=== PATIENT | male | born 1985 | race Two or more races ===

== ENCOUNTER 2024-02-05 08:33 | Inpatient (IN) ==
--- NOTE | 2024-02-05 09:04 | Emergency Department Note ---
History of Present Illness General Chief complaint: Groin Pain Stated complaint: GROIN PAIN Time Seen by Provider: 02/05/24 08:42 History of Present Illness Maximum Pain Intensity: 4 This is a 38-year-old male that presents to the emergency department via private vehicle with complaints of "left-sided groin pain". The patient notes that for the past several years now he has had intermittent episodes of left-sided groin pain that radiates to the penis and rectal/prostate region. He states that normally it is of short duration. He notes that last week there was a brief episode that resolved and then about 3 days ago developed discomfort that has been rather constant and is unusual for him. He denies any trauma or injury. He points to the left lower quadrant/left-sided suprapubic region as location of discomfort at times and at random and will radiate pain to the penis as well as rectal/prostate region. The patient denies any testicular pain. No aggravating factor. Deviating factors he notes is with urination, bowel movement or ejaculation. He denies any blood in the urine or stool. He denies any trouble with urination or bowel movements. He denies any fevers, chills, nausea or vomiting. He notes he is otherwise healthy. No known drug allergies. He notes he is a monogamous relationship and denies concern or chance of STI. Home Medications Medication Instructions Recorded Confirmed Type ibuprofen 200 mg tablet 200 mg PO Q6H PRN PAIN/FEVER 02/05/24 02/05/24 History levocetirizine 5 mg tablet (Xyzal) 5 mg PO DAILY 02/05/24 02/05/24 History Allergies Allergy/AdvReac Type Severity Reaction Status Date / Time No Known Allergies Allergy Unverified 02/05/24 11:40 Past Med/Surg History Problem List (Updated 02/05/24 @ 12:32 by Jared Grover PA-C) Acute diverticulitis (Acute) Social History Smoking Status: Never smoker Preferred Language: Malay Feels Safe at Home: Yes Review of Systems A total of 10 systems reviewed and were otherwise negative Physical Exam Vital Signs Vital Signs - 24 hr 02/05/24 08:36 02/05/24 11:19 Temperature 37.0 C Temperature Source Temporal Artery Scan Pulse Rate 96 H Pulse Rate [Radial] 87 Respiratory Rate 18 16 Respiratory Effort / Characteristics Non-Labored Spontaneous Respiratory Depth Normal Respiratory Pattern Regular Blood Pressure 157/95 H Blood Pressure [Left Arm] 142/82 H Blood Pressure Mean 115 Blood Pressure Mean [Left Arm] 102 Pulse Oximetry 96 99 Oxygen Delivery Method Room Air Sepsis Recent Fever Within 48 Hours No Sepsis New/Unexplained Change in Mental Status No Sepsis Action Taken by Nursing No Action Required VITAL SIGNS - Vital signs and nursing notes were reviewed. Stable and afebrile. GENERAL -38-year-old male appearing his stated age who is in no acute distress. Communicates well with provider and answers questions appropriately. SKIN - Without rashes. No meningeal or petechial rash. HEAD - NC/AT. EYES - PERRL with EOMI bilaterally. Sclera anicteric. NECK - No nuchal rigidity. LUNGS - CTA CARDIAC - RRR ABDOMEN - Abdominal contour normal without pulsations or visible masses. BS normoactive all four quadrants. No tenderness, palpable masses, hepatosplenomegaly, or ascites noted. GURN machine maintenance servicer present. Consent was obtained. Scrotal region is unremarkable to inspection. Penis unremarkable to inspection. No lesions or rashes. Scrotal region nontender. No evidence of testicular torsion. No high riding testicle. Normal cremasteric reflex. There is no erythema or edema to the groin or genital area. No crepitus. EXTREMITIES - No clubbing or peripheral cyanosis. +5/5 strength noted in UE/LE bilaterally. PSYCH -alert, oriented and pleasant on exam Course Administered Medications Lactated Ringer's (Lr) 1,000 mls @ 999 mls/hr IV .Q1H1M ONE Stop: 02/05/24 13:42 Last Admin: 02/05/24 12:50 Dose: 999 mls/hr Documented By: ARS Discontinued Medications Piperacillin Sod/Tazobactam Sod (Zosyn) 4.5 gm in 100 mls @ 200 mls/hr IV NOW ONE Stop: 02/05/24 12:49 Last Admin: 02/05/24 12:34 Dose: 200 mls/hr Documented By: KIRT Acetaminophen (Ofirmev) 1,000 mg in 100 mls @ 400 mls/hr IV NOW STA Stop: 02/05/24 12:56 Last Admin: 02/05/24 12:50 Dose: 400 mls/hr Documented By: KIRT Ioversol (Optiray 320 100ml) 94 ml IV ONCE ONE Stop: 02/05/24 11:05 Last Admin: 02/05/24 11:05 Dose: 94 ml Documented By: JAN Medical Decision Making Laboratory Data 02/05/24 09:13 02/05/24 09:13 Lab Results 02/05/24 Range/Units 09:13 WBC 8.56 (4.8-10.8) K/ul RBC 5.55 (4.70-6.10) M/uL Hgb 14.1 (14.0-18.0) g/dl Hct 44.1 (42.0-52.0) % MCV 79.5 L (80.0-100.0) fL MCH 25.4 (25.0-34.0) pg MCHC 32.0 (32.0-36.0) g/dL RDW Std Deviation 37.6 (36.4-46.3) fL RDW Coeff of Rosa 13.2 (11.5-14.5) % Plt Count 233 (130-400) K/uL MPV 10.9 (9.4-12.4) fL Immature Gran % (Auto) 0.8 % Neut % (Auto) 66.4 % Lymph % (Auto) 23.0 % [place] % (Auto) 7.8 % Eos % (Auto) 1.6 % Baso % (Auto) 0.4 % Neut # (Auto) 5.68 (1.40-6.50) K/uL Lymph # (Auto) 1.97 (1.20-3.40) K/uL [place] # (Auto) 0.67 H (0.11-0.59) K/uL Eos # (Auto) 0.14 (0.00-0.50) K/uL Baso # (Auto) 0.03 (0.00-0.20) K/uL Immature Gran # (Auto) 0.07 (0.01-0.20) K/uL Sodium 136 (136-145) mmol/L Potassium 3.9 (3.5-5.1) mmol/L Chloride 100 (98-107) mmol/L Carbon Dioxide 28 (21-32) mmol/L Anion Gap 8 (3-11) BUN 10 (6-23) mg/dl Creatinine 0.73 (0.6-1.4) mg/dl Est Cr Clr Drug Dosing 209.3 ml/min Est GFR ( Amer) 137.3 ml/min Est GFR (Non-Af Amer) 118.5 ml/min BUN/Creatinine Ratio 13.7 (10-20) Glucose 104 H (70-99(Fasting)) mg/dl Calcium 9.5 (8.6-10.3) mg/dl Total Bilirubin 0.6 (0.2-1.0) mg/dl AST 12 L (13-39) U/L ALT 16 (7-52) U/L Alkaline Phosphatase 76 (34-104) U/L Total Protein 8.4 H (6.0-8.3) gm/dl Albumin 4.6 (3.4-5.0) gm/dl Globulin 3.8 (2.5-4.0) gm/dl Albumin/Globulin Ratio 1.2 (0.9-2) Lipase 8 L (11-82) U/L Urine Color Yellow Urine Appearance Clear (Clear) Urine pH 6.5 (4.5-7.5) Ur Specific [place] 1.018 (1.000-1.030) Urine Protein Negative (Negative) Urine Glucose (UA) Negative (Negative) Urine Ketones Negative (Negative) Urine Blood Negative (Negative) Urine Nitrite Negative (Negative) Urine Bilirubin Negative (Negative) Urine Urobilinogen Negative (Negative) Ur Leukocyte Esterase Negative (Negative) Imaging Data Radiologist's Impression: Abdomen/Pelvis CT 02/05/24 08:58 CT abd pelvis IV con only CLINICAL HISTORY: LLQ abd/suprapubic abd pain into penis/rectal area TECHNIQUE: Helical axial images of the abdomen and pelvis were obtained and displayed. Automated dose lowering techniques and/or adjustment according to patient size were utilized for this exam. This exam was performed with intravenous contrast. CT DOSE: 1793.06 mGy.cm COMPARISON: None available at the time of this dictation. FINDINGS: Lower chest: No acute abnormality. Liver: Unremarkable. No focal lesions are seen. Gallbladder and biliary tree: No calcified gallstones. Normal caliber wall. No intra- or extrahepatic biliary ductal dilation. Pancreas: Unremarkable, no focal lesions. Spleen: Unremarkable. Adrenals: Unremarkable. Kidneys and ureters: Renal cysts are seen. Bladder: Unremarkable. Reproductive organs: Unremarkable. Bowel: There is thickening and fat stranding of the sigmoid colon surrounding multiple diverticula. There is an enhancing tract compatible with a colocolic fistula. Lymph nodes Retroperitoneal: Unremarkable. Pelvic: Unremarkable. Mesenteric: Subcentimeter lymph nodes are seen in the region of the sigmoid colon.. Peritoneum: Some free fluid is seen along with fat stranding about the sigmoid colon. No drainable fluid collection. Vessels: Unremarkable. Abdominal wall: Unremarkable. Bones: Unremarkable. 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 No evidence of shakira abscess formation or perforation. ACT 112: Negative or not required by law. Electronically signed by: Moe Fournier M.D. 02/05/2024 11:44 AM MDM Narrative Patient was seen and evaluated as above in room C09. Review was performed of triage nursing notes and vital signs. After obtaining a thorough history and physical examination the above work up was performed. Patient presents to us today for evaluation of left lower quadrant abdominal pain that radiates to the penis and rectal region intermittently. Options of care were discussed with the patient. IV access was established. Labs were drawn. There is no leukocytosis or concerning anemia. No emergent metabolic disturbance. Urinalysis reveals no evidence of infection. CT scan was obtained of the abdomen/pelvis. Results as above. Findings are compatible with diverticulitis complicated by colocolonic fistula in the sigmoid colon. No evidence of shakira abscess formation or perforation. There is also comment of free fluid and fat stranding radiology. I discussed this with the on-call general surgery service. They came to evaluate the patient. Please refer to documentation regarding general surgery evaluation. Recommendation is IV antibiotics. IV Zosyn was ordered. Case discussed with hospitalist service for further evaluation and management. Please refer to further documentation regarding his stay. GCS: 15 In the evaluation and treatment of this patient the following differential diagnoses were entertained: UTI, pyelonephritis, diverticulitis, perforation, abscess, testicular torsion, among others. Impression & Plan Acute diverticulitis Discharge Plan Visit Data Chief Complaint: Groin Pain Stated Complaint: GROIN PAIN ED Provider: Claribel Pinedo ED Midlevel Provider: Jared Grover Discharge Problem: Acute diverticulitis Patient Disposition: Admitted As Inpatient Condition: Good Forms Stand Alone Forms: My [facility] Prescriptions Prescriptions: No Action ibuprofen 200 mg Tablet 200 mg PO Q6H PRN (Reason: PAIN/FEVER) levocetirizine [Xyzal] 5 mg Tablet 5 mg PO DAILY Referrals Referrals: PCP,NO [Primary Care Provider] -
[2024-02-05 09:27] LABS: Appearance Urine Clear (Clear); Bilirubin Urine Negative (Negative); Blood Urine Negative (Negative); Color Urine Yellow; Glucose Urine UA Negative (Negative); Ketones Urine Negative (Negative); Leukocyte Esterase Urine Negative (Negative); Nitrite Urine Negative (Negative); Protein Urine Negative (Negative); Specific Gravity Urine 1.018 (1.000-1.030); Urobilinogen Urine Negative (Negative); pH Urine 6.5 (4.5-7.5)
[2024-02-05 09:36] LABS: Basophils # (auto) 0.03 K/uL (0.00-0.20); Basophils % (auto) 0.4 %; Eosinophils # (auto) 0.14 K/uL (0.00-0.50); Eosinophils % (auto) 1.6 %; Hematocrit (blood only) 44.1 % (42.0-52.0); Hemoglobin 14.1 g/dl (14.0-18.0); Immature Granulocytes # (auto) 0.07 K/uL (0.01-0.20); Immature Granulocytes % (auto) 0.8 %; Lymphocytes # (auto) 1.97 K/uL (1.20-3.40); Mean Corpuscular Hemoglobin 25.4 pg (25.0-34.0); Mean Corpuscular Volume 79.5 fL (80.0-100.0); Mean Platelet Volume 10.9 fL (9.4-12.4); Monocytes # (auto) 0.67 K/uL (0.11-0.59); Monocytes % (auto) 7.8 %; Neutrophils # (auto) 5.68 K/uL (1.40-6.50); Neutrophils % (auto) 66.4 %; Platelet Count 233 K/uL (130-400); RDW Coefficient of Variation 13.2 % (11.5-14.5); RDW Standard Deviation 37.6 fL (36.4-46.3); Red Blood Count 5.55 M/uL (4.70-6.10); White Blood Count 8.56 K/ul (4.8-10.8)
[2024-02-05 09:49] LABS: Albumin Globulin Ratio 1.2 (0.9-2); Albumin Level 4.6 gm/dl (3.4-5.0); BUN Creatinine Ratio 13.7 (10-20); Bilirubin,Total 0.6 mg/dl (0.2-1.0); Calcium 9.5 mg/dl (8.6-10.3); Creatinine Clr Calc Pharmacy 209.3 ml/min; Est GFR (African American) 137.3 ml/min; Est GFR (Non-African American) 118.5 ml/min; Globulin 3.8 gm/dl (2.5-4.0); Potassium 3.9 mmol/L (3.5-5.1); Total Protein 8.4 gm/dl (6.0-8.3)
[2024-02-05] MEDS: OPTIRAY 320 100ml IV ONE (11:05)
--- NOTE | 2024-02-05 11:45 | CT Scan Report ---
CT abd pelvis IV con only CLINICAL HISTORY: LLQ abd/suprapubic abd pain into penis/rectal area TECHNIQUE: Helical axial images of the abdomen and pelvis were obtained and displayed. Automated dose lowering techniques and/or adjustment according to patient size were utilized for this exam. This e xam was performed with intravenous contrast. CT DOSE: 1793.06 mGy.cm COMPARISON: None available at the time of this dictation. FINDINGS: Lower chest: No acute abnormality. Liver: Unremarkable. No focal lesions are seen. Gallbladder and biliary tree: No calcified gallstones. Normal caliber wall. No intra- or extrahepatic biliary ductal dilation. Pancreas: Unremarkable, no focal lesions. Spleen: Unremarkable. Adrenals: Unremarkable. Kidneys and ureters: Renal cysts are seen. Bladder: Unremarkable. Reproductive organs: Unremarkable. Bowel: There is thickening and fat stranding of the sigmoid colon surrounding multiple diverticula. T here is an enhancing tract compatible with a colocolic fistula. Lymph nodes Retroperitoneal: Unremarkable. Pelvic: Unremarkable. Mesenteric: Subcentimeter lymph nodes are seen in the region of the sigmoid colon.. Peritoneum: Some free fluid is seen along with fat stranding about the sigmoid colon. No drainable fl uid collection. Vessels: Unremarkable. Abdominal wall: Unremarkable. Bones: Unremarkable. 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 No evidence of shakira abscess formation or perforation. ACT 112: Negative or not required by law. Electronically signed by: Moe Fournier M.D. 02/05/2024 11:44 AM
--- NOTE | 2024-02-05 12:22 | Surgery Consultation ---
<Statement entered by Kirsten Pinon DO - 02/05/24 17:18> This case has been discussed with the surgical PA. I agree with the plan. Date of Consultation February 05, 2024 Assessment & Plan (1) Acute diverticulitis: This is a 38yM who presents to the [facility] ED on 02/05/24 with LLQ/groin pain that started 2 days ago. He reports intermittent flares up of similar episodes of pain that have occurred every few months over the last 3-4 years that never last more than a day. He presented to the ER today for further evaluation. 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 No evidence of shakira abscess formation or perforation. Labs reveal WBC 8.5, Hbg 14, Cr 0.7. Vital signs are stable and patient is afebrile. On examination patient's abdomen is soft with tenderness to palpation in the LLQ and supra-pubic regions. He feels discomfort in the LLQ when palpated in the abdomen elsewhere. Given severity of pain prompting him to come in he will likely benefit from admission for a course of IV abx. Recommend sips/chips, IVF, and IV zosyn. No imminent plans for surgical intervention indicated at this time. Hopeful for diet advancement tomorrow should his symptoms continue to improve and he looks well clinically. Will need to complete a course of po abx at home. He will benefit from colonoscopy in 6-8 wks after this episode and can follow up with us or colorectal as an outpatient. Appreciate medicine's assistance with the patient. History of Present Illness History of Present Illness This is a 38yM who presents to the [facility] ED on 02/05/24 with LLQ/groin pain that started 2 days ago. He reports intermittent flares up of similar episodes of pain that have occurred every few months over the last 3-4 years. The episodes of discomfort never last more than a day. This time his pain has been present and constant with intermittent spikes of pain that occur over the last 2 days. At its worst the pain reaches a 9/10 in severity. He presented to the ER today for further evaluation. 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 No evidence of shakira abscess formation or perforation. The patient denies any fevers/chills, nausea/vomiting, CP or SOB. Denies diarrhea or constipation, but that he has been going more frequently up to 2-3x/day smaller in size compared to his usual 1x/day. He is passing gas and had 2 BM's this Am. No history of abdominal surgery. No colonoscopy's. No history of IBD in patient/family. Never was worked up for this before or told he had diverticulosis or diverticulitis. Allergies Allergy/AdvReac Type Severity Reaction Status Date / Time No Known Allergies Allergy Unverified 02/05/24 11:40 Home Medications Medication Instructions Recorded Confirmed Type ibuprofen 200 mg tablet 200 mg PO Q6H PRN PAIN/FEVER 02/05/24 02/05/24 History levocetirizine 5 mg tablet (Xyzal) 5 mg PO DAILY 02/05/24 02/05/24 History Patient History Social History Smoking Status: Never smoker Preferred Language: Ukrainian Feels Safe at Home: Yes Review of Systems Constitutional: no fever and no chills Respiratory: no dyspnea Cardiovascular: no chest pain Gastrointestinal: + abdominal pain (LLQ/supra-pubic) and + change in bowel habits (more frequent smaller sized stools); no nausea, no vomiting, no constipation, no diarrhea/loose stools and no blood in stools Genitourinary: no problem reported Physical Exam Physical Exam: awake/alert, no distress Respiratory: normal respiratory effort Cardiovascular: Rate/Rhythm: regular rate and regular rhythm Gastrointestinal (Abdomen): Inspection/Auscultation: abdomen not distended Percussion/Palpation: + abdomen tender (ttp in the LLQ and supra-pubic regions. ttp on abdomen radiates to L side) and abdomen soft Results & Data Vital Signs (Past 12 Hours) Vital Signs Temp Pulse Pulse Resp BP BP Pulse Ox 02/05/24 11:19 87 16 142/82 H 99 02/05/24 08:36 98.6 F 96 H 18 157/95 H 96 O2 Del Method 02/05/24 11:19 02/05/24 08:36 Room Air Diagnostic Findings CT abd pelvis IV con only CLINICAL HISTORY: LLQ abd/suprapubic abd pain into penis/rectal area TECHNIQUE: Helical axial images of the abdomen and pelvis were obtained and displayed. Automated dose lowering techniques and/or adjustment according to patient size were utilized for this exam. This exam was performed with intravenous contrast. CT DOSE: 1793.06 mGy.cm COMPARISON: None available at the time of this dictation. FINDINGS: Lower chest: No acute abnormality. Liver: Unremarkable. No focal lesions are seen. Gallbladder and biliary tree: No calcified gallstones. Normal caliber wall. No intra- or extrahepatic biliary ductal dilation. Pancreas: Unremarkable, no focal lesions. Spleen: Unremarkable. Adrenals: Unremarkable. Kidneys and ureters: Renal cysts are seen. Bladder: Unremarkable. Reproductive organs: Unremarkable. Bowel: There is thickening and fat stranding of the sigmoid colon surrounding multiple diverticula. There is an enhancing tract compatible with a colocolic fistula. Lymph nodes Retroperitoneal: Unremarkable. Pelvic: Unremarkable. Mesenteric: Subcentimeter lymph nodes are seen in the region of the sigmoid colon.. Peritoneum: Some free fluid is seen along with fat stranding about the sigmoid colon. No drainable fluid collection. Vessels: Unremarkable. Abdominal wall: Unremarkable. Bones: Unremarkable. 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 No evidence of shakira abscess formation or perforation. ACT 112: Negative or not required by law. Electronically signed by: Moe Fournier M.D. 02/05/2024 11:44 AM PG Care Time/CCT Total # of Minutes Spent Total Time Spent with Patient: Total time spent is greater than 50% in coordination of care (as documented) at patient's floor/unit and/or counseling patient: Coding Level of Care Code 59056 OFFICE CONSULT LVL /40M Diagnoses Acute diverticulitis K57.92
--- NOTE | 2024-02-05 12:33 | History & Physical Report ---
Date of Service February 05, 2024 Assessment & Plan (1) Acute diverticulitis: Plan: -Admit to med/surge -Stable and non-toxic appearing. 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 No signs of abscess or perforation -General surgery is following, recommends conservative management for now -S/P 1 dose of zosyn in the ED, will continue with Zosyn for now -Will give 1L LR bolus now then continue maintenance LR x 2 bags -NPO with sips/chips today, can advance diet tomorrow if improving -PRN tylenol and morphine for pain -BL SCD's for DVT PPX -AM CBC, CMP, mag, PT/INR Plan The patient was discussed with Dr. Milian at the time of the admission History of Present Illness Chief Complaint: Abdominal pain Primary Care Provider: NO PCP Bon is a 38 year old male with no significant PMH who presented to the [facility] ED on 02/05/24 with complaints of persistent left lower abdominal pain with radiation to the left groin. He remained stable in the ED. Labs including CBC, CMP, lipase, and UA were unremarkable. 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 No evidence of shakira abscess formation or perforation.". The patient was evaluated by General Surgery who has no immediate plans for surgical intervention and recommended medicine admission for IV abx. Prior to admission the patient was given a dose of zosyn. At the time of the exam the patient was sitting in bed in no acute distress. He states that he has been experiencing his LLQ abdominal pain for the past 3 days. Comes in waves, is sharp/stabbing, radiates to the left groin at it's most severe. Relieved with urination and defecation. Denies recent fever, chest pain, SOB, nausea/vomiting, dysuria, hematuria, melena, diarrhea, and recent trauma. Did not have anything to eat yesterday. Pain is currently a 3/10 at rest. Has had this pain intermittently over the past 3 years but usually resolves spontaneously within 24 hours, has never been diagnosed with diverticulitis in the past. Please refer to Dr. Milian's attestation for any changes to the treatment plan Allergies Allergy/AdvReac Type Severity Reaction Status Date / Time No Known Allergies Allergy Unverified 02/05/24 11:40 Home Medications Medication Instructions Recorded Confirmed Type ibuprofen 200 mg tablet 200 mg PO Q6H PRN PAIN/FEVER 02/05/24 02/05/24 History levocetirizine 5 mg tablet (Xyzal) 5 mg PO DAILY 02/05/24 02/05/24 History Past Med/Surg History Problem List (Updated 02/05/24 @ 12:32 by Jared Grover PA-C) Acute diverticulitis (Acute) Social History Smoking Status: Never smoker Preferred Language: Maltese Feels Safe at Home: Yes Physical Exam Physical Exam: Physical Exam: General: In no acute distress, stated age, well-nourished, good hygiene, non- toxic appearing HEENT: Normocephalic, atraumatic, no scleral icterus, pupils around round, symmetrical, and reactive to light, moist mucus membranes, trachea midline, no thyromegaly Chest/Pulm: No respiratory distress, symmetrical chest expansion, clear breath sounds throughout Cardiac: RRR, no murmurs noted Abdomen: Negative for ascites and bruising, normoactive bowel sounds, soft, non-tender to percussion throughout, mild pain in the LLQ with palpation of all other abdominal rojas, moderate LLQ pain on palpation without rebound tenderness Musculoskeletal: Symmetrical and without signs of acute trauma, upper and lower extremities with full ROM, no atrophy, spasticity, or flaccidity Extremities: Radial, dorsalis pedis, and posterior tibial pulses are intact and symmetrical, no edema noted in the BL LE's Skin: Warm, dry, no rashes , lesions, or scars noted Neuro: Alert and oriented to person, place, month, year, and president, no focal defects, no tremors noted Psych: No acute distress, calm and cooperative during the exam Results & Data Results & Data Vital Signs (Past 12 Hours) Vital Signs Temp Pulse Pulse Resp BP BP Pulse Ox 02/05/24 11:19 87 16 142/82 H 99 02/05/24 08:36 37.0 C 96 H 18 157/95 H 96 O2 Del Method 02/05/24 11:19 02/05/24 08:36 Room Air Laboratory Results Abnormal lab results 02/05/24 Range/Units 09:13 MCV 79.5 L (80.0-100.0) fL Person # (Auto) 0.67 H (0.11-0.59) K/uL Glucose 104 H (70-99(Fasting)) mg/dl AST 12 L (13-39) U/L Total Protein 8.4 H (6.0-8.3) gm/dl Lipase 8 L (11-82) U/L Diagnostic Findings Abdomen/Pelvis CT 02/05/24 08:58 CT abd pelvis IV con only CLINICAL HISTORY: LLQ abd/suprapubic abd pain into penis/rectal area TECHNIQUE: Helical axial images of the abdomen and pelvis were obtained and displayed. Automated dose lowering techniques and/or adjustment according to patient size were utilized for this exam. This exam was performed with intravenous contrast. CT DOSE: 1793.06 mGy.cm COMPARISON: None available at the time of this dictation. FINDINGS: Lower chest: No acute abnormality. Liver: Unremarkable. No focal lesions are seen. Gallbladder and biliary tree: No calcified gallstones. Normal caliber wall. No intra- or extrahepatic biliary ductal dilation. Pancreas: Unremarkable, no focal lesions. Spleen: Unremarkable. Adrenals: Unremarkable. Kidneys and ureters: Renal cysts are seen. Bladder: Unremarkable. Reproductive organs: Unremarkable. Bowel: There is thickening and fat stranding of the sigmoid colon surrounding multiple diverticula. There is an enhancing tract compatible with a colocolic fistula. Lymph nodes Retroperitoneal: Unremarkable. Pelvic: Unremarkable. Mesenteric: Subcentimeter lymph nodes are seen in the region of the sigmoid colon.. Peritoneum: Some free fluid is seen along with fat stranding about the sigmoid colon. No drainable fluid collection. Vessels: Unremarkable. Abdominal wall: Unremarkable. Bones: Unremarkable. 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 No evidence of shakira abscess formation or perforation. ACT 112: Negative or not required by law. Electronically signed by: Moe Fournier M.D. 02/05/2024 11:44 AM ECG Additional Comments: Will obtain at the time of the admission Code Status & VTE Plan Code Status Full code VTE Prophylaxis Plan VTE Prophylaxis will be ordered: Yes PG Care Time/CCT Total # of Minutes Spent Total Time Spent with Patient: Total time spent is greater than 50% in coordination of care (as documented) at patient's floor/unit and/or counseling patient: [place] [address] INT INP/OBS CARE 2/55MIN Patient Type New History Comprehensive Exam Comprehensive Medical Decision Making Moderate Complexity Diagnoses Acute diverticulitis K57.92
[2024-02-05] MEDS: PIPERACILLIN/TAZOBACTAM 4.5 GM/100 ML BAG IV ONE (12:34)
[2024-02-05] MEDS ORDERED: MoRPHine SULFATE 2 MG/ML CARP IV PRN (12:43)
[2024-02-05] MEDS: LACTATED RINGER'S 1,000 ML IV ONE (12:50)
[2024-02-05] MEDS: ACETAMINOPHEN 1,000 MG/100 ML VIAL IV STA (12:50)
[2024-02-05] MEDS: LACTATED RINGER'S 1,000 ML IV SCH (17:19)
[2024-02-05] MEDS: PIPERACILLIN/TAZOBACTAM 4.5 GM in DEXTROSE 5% MINI-B 100 ML IV SCH (20:06)
[2024-02-05] MEDS: ACETAMINOPHEN 1,000 MG/100 ML VIAL IV PRN (20:48)
[2024-02-06 08:07] LABS: Basophils # (auto) 0.03 K/uL (0.00-0.20); Basophils % (auto) 0.6 %; Eosinophils # (auto) 0.19 K/uL (0.00-0.50); Eosinophils % (auto) 3.5 %; Hematocrit (blood only) 40.7 % (42.0-52.0); Immature Granulocytes # (auto) 0.04 K/uL (0.01-0.20); Immature Granulocytes % (auto) 0.7 %; Lymphocytes # (auto) 1.97 K/uL (1.20-3.40); Lymphocytes % (auto) 36.2 %; Mean Corpuscular Hemoglobin 25.2 pg (25.0-34.0); Mean Corpuscular Hgb Conc 31.9 g/dL (32.0-36.0); Mean Platelet Volume 10.9 fL (9.4-12.4); Monocytes % (auto) 7.4 %; Neutrophils # (auto) 2.81 K/uL (1.40-6.50); Neutrophils % (auto) 51.6 %; Platelet Count 222 K/uL (130-400); RDW Standard Deviation 37.1 fL (36.4-46.3); Red Blood Count 5.15 M/uL (4.70-6.10); White Blood Count 5.44 K/ul (4.8-10.8)
[2024-02-06 08:24] LABS: Albumin Globulin Ratio 1.1 (0.9-2); Albumin Level 4.2 gm/dl (3.4-5.0); BUN Creatinine Ratio 9.7 (10-20); Bilirubin,Total 0.6 mg/dl (0.2-1.0); Calcium 9.2 mg/dl (8.6-10.3); Creatinine Clr Calc Pharmacy 212.2 ml/min; Est GFR (African American) 138.1 ml/min; Est GFR (Non-African American) 119.2 ml/min; Globulin 3.7 gm/dl (2.5-4.0); Potassium 3.9 mmol/L (3.5-5.1); Total Protein 7.9 gm/dl (6.0-8.3)
[2024-02-06 08:33] LABS: Prothrombin Time 10.9 Seconds (9.0-12.0)
--- NOTE | 2024-02-06 10:42 | Surgery Progress Note ---
Date of Service February 06, 2024 Assessment & Plan (1) Acute diverticulitis: Plan: Pt here w/ acute diverticulitis and concern for colocolic fistula WBC 5 (8). Vitals stable Patient feeling improvement since admission Will allow clears today, possibly fulls for dinner if does well If symptoms continue to improve and WBC normal may advance to low fiber tomorrow with possbile discharge to home Will need to complete a course of po abx F/u with GI for outpt colonoscopy in about 6-8 wks time May f/u with us if trouble getting in with GI for colonoscopy Corby covering wknd Admission and Anticipated Discharge Date Admission Date: February 05, 2024 Supervising Physician Co-Signing Physician Notes I have seen and examined this patient and I agree with this assessment and plan. Subjective Patient reports feeling some improvement in pain compared to yesterday. No nausea. + flatus and had a couple small BMs this AM Physical Exam Physical Exam: awake/alert, no distress Gastrointestinal (Abdomen): Inspection/Auscultation: abdomen not distended Percussion/Palpation: + abdomen tender (mild discomfort in supra-pubic and LLQ/ regions) and abdomen soft; no guarding Results & Data Vital Signs (Past 12 Hours) Vital Signs Temp Pulse Resp BP Pulse Ox O2 Del Method 02/06/24 07:00 97.5 F L 66 25 H 120/70 98 Room Air PG Care Time/CCT Total # of Minutes Spent Total Time Spent with Patient: Total time spent is greater than 50% in coordination of care (as documented) at patient's floor/unit and/or counseling patient: Coding Level of Care Code 64977 SUB INP/OBS CARE 10/16MIN Diagnoses Acute diverticulitis K57.92
--- NOTE | 2024-02-06 12:21 | Discharge Summary ---
Date of Service February 06, 2024 Admission HPI Per Admitting Provider Bon is a 38 year old male with no significant PMH who presented to the [facility] ED on 02/05/24 with complaints of persistent left lower abdominal pain with radiation to the left groin. He remained stable in the ED. Labs including CBC, CMP, lipase, and UA were unremarkable. 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 No evidence of shakira abscess formation or perforation.". The patient was evaluated by General Surgery who has no immediate plans for surgical intervention and recommended medicine admission for IV abx. Prior to admission the patient was given a dose of zosyn. At the time of the exam the patient was sitting in bed in no acute distress. He states that he has been experiencing his LLQ abdominal pain for the past 3 days. Comes in waves, is sharp/stabbing, radiates to the left groin at it's most severe. Relieved with urination and defecation. Denies recent fever, chest pain, SOB, nausea/vomiting, dysuria, hematuria, melena, diarrhea, and recent trauma. Did not have anything to eat yesterday. Pain is currently a 3/10 at rest. Has had this pain intermittently over the past 3 years but usually resolves spontaneously within 24 hours, has never been diagnosed with diverticulitis in the past. Principal Diagnosis Diverticulitis Discharge Exam GENERAL: 38 yo well-developed, well-nourished Male. No distress. LUNGS: Clear to auscultation bilaterally. No W/R/R. CARDIOVASCULAR: Regular rate and rhythm. No M/G/R. No JVD. ABDOMEN: Soft, minimally tender to palp LLQ to just below umbilicus. ND. BS normoactive x 4 quad. No rigidity or guarding. EXTREMITIES: No edema. Non-tender. Peripheral pulses +2/4. SKIN: Warm, dry, intact. No rashes or lesions. Discharge Data Allergies Allergy/AdvReac Type Severity Reaction Status Date / Time No Known Allergies Allergy Unverified 02/05/24 11:40 Consultations 02/05/24 12:29 ED Decision to Admit Stat 02/05/24 12:52 Consult General Surgery Stat Ordered Studies 02/06/24 07:32 02/06/24 07:32 Abdomen/Pelvis CT 02/05/24 08:58 CT abd pelvis IV con only CLINICAL HISTORY: LLQ abd/suprapubic abd pain into penis/rectal area TECHNIQUE: Helical axial images of the abdomen and pelvis were obtained and displayed. Automated dose lowering techniques and/or adjustment according to patient size were utilized for this exam. This exam was performed with intravenous contrast. CT DOSE: 1793.06 mGy.cm COMPARISON: None available at the time of this dictation. FINDINGS: Lower chest: No acute abnormality. Liver: Unremarkable. No focal lesions are seen. Gallbladder and biliary tree: No calcified gallstones. Normal caliber wall. No intra- or extrahepatic biliary ductal dilation. Pancreas: Unremarkable, no focal lesions. Spleen: Unremarkable. Adrenals: Unremarkable. Kidneys and ureters: Renal cysts are seen. Bladder: Unremarkable. Reproductive organs: Unremarkable. Bowel: There is thickening and fat stranding of the sigmoid colon surrounding multiple diverticula. There is an enhancing tract compatible with a colocolic fistula. Lymph nodes Retroperitoneal: Unremarkable. Pelvic: Unremarkable. Mesenteric: Subcentimeter lymph nodes are seen in the region of the sigmoid colon.. Peritoneum: Some free fluid is seen along with fat stranding about the sigmoid colon. No drainable fluid collection. Vessels: Unremarkable. Abdominal wall: Unremarkable. Bones: Unremarkable. 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 No evidence of shakira abscess formation or perforation. ACT 112: Negative or not required by law. Electronically signed by: Moe Fournier M.D. 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 No signs of abscess or perforation -General surgery is following, recommends conservative management for now with outpatient follow up. -S/P 1 dose of zosyn in the ED which was continued upon admission. -Received LR and kept NPO with sips/ice chips -Diet advanced this AM and he had clears, he is hoping for d/c today -PRN tylenol and morphine for pain ordered, has not had anything for pain since 10pm last evening (took Tylenol) -CBC and CMP reviewed today. No significant abnormalities appreciated. -Patient tolerating dietary advancement, would advise full liquids tonight for dinner and then advance to low residue tomorrow -Follow up with GI or general surgery for outpatient colonoscopy in 6-8 weeks. -Recommend establishing care with a PCP to follow up with as well. Plan Patient is medically and hemodynamically stable for discharge with outpatient follow up as outlined above. Above plan of care has been d/w Dr. Leon who is in agreement. Total Time Total Time Spent Total Time Spent (In Minutes): <30 minutes Discharge Plan Discharge Items Patient Disposition: Home - Self-Care Reason For Visit: ACUTE DIVERTICULITIS Discharge Diagnosis: Diverticulitis Condition on Discharge: Good Activity: Resume your previous activity Non-emergency contact: Primary Care Provider and Surgeon Call non-emergency contact if: you have any medication questions, your symptoms worsen, your pain is not controlled, your pain is worsening and your temperature is above 101 Follow-up/Referrals: Kirsten Pinon DO [Physician] - PCP,NO [Primary Care Provider] - Diet: Low Fiber Addtl Attending Provider Instructions: Continue on a low fiber diet over the next couple of weeks until your bowels normalize. Avoid any foods that contain nuts or seeds (especially POPCORN!) Follow up with a PCP within 1 week of discharge. Follow up with general surgery as scheduled. Complete course of Augmentin (Amoxicillin-Clav acid) as prescribed. You may start your first dose this evening (02/06/24) before bed. Take with food or milk to minimize GI upset. Contact Dr. Pinon's office to schedule an appointment for follow up or you may schedule an appointment with [facility] Gastroenterology. You will need a colonoscopy in about 6-8 weeks. Pending Studies at Discharge: No Stand-Alone Forms: My [facility], Smoking Cessation Medications and DC Order Prescriptions: New amoxicillin-pot clavulanate 875-125 mg tablet 1 tab PO BID Qty: 10 0RF Continued ibuprofen 200 mg Tablet 200 mg PO Q6H PRN (Reason: PAIN/FEVER) levocetirizine [Xyzal] 5 mg Tablet 5 mg PO DAILY Discharge Orders: Discharge Order (Routine); Ordered 02/06/24 Ordered By: Marycruz Montiel/Other Patient Handouts: Low-Fiber Diet, ED Diverticulitis Admission Data Admit Date/Time: 02/05/24 12:42 Attending Provider: Biju Leon Admit Provider: Xavier Milian Primary Care Provider: PCP,NO Other Providers: Xavier Milian; Kirsten Pinon Coding Level of Care Code 99926 IN/OBS DISCH 30 MIN/LESS Diagnoses Acute diverticulitis K57.92
== END 2024-02-06 14:55 | disposition home or self-care (01) | DRG 392 ==
LOC: ED 08:33 → 3W 12:42 → SUATTDRO 12:42 → 3W 16:47
DX: K63.2 Fistula of intestine; Z79.899 Other long term (current) drug therapy; K57.32 Diverticulitis of large intestine without perforation or abscess without bleeding